=== PATIENT | female | born 1960 | race Caucasian/White ===

== ENCOUNTER 2019-11-28 13:15 | Emergency (ER) | payer OTHER ==
[~2019-11-28] VITALS: Ht 160 cm; Wt 85.7 kg
[~2019-11-28 13:15] MED LIST: CIPR500T87 PO; METR500T PO; OXYC-302 PO
[2019-11-28 13:32] VITALS: BP 115/70
[2019-11-28] MEDS ORDERED: ACETAMINOPHEN 500 MG TABLET ONE (14:05)
--- NOTE | 2019-11-28 14:22 | NUR ---
call light is within reach. pt placed on cardiac, o2 monitoring in place. pt is agreeable to plan of care, and educated in rtegard to nurse comminucation vs covid precautions. i will monitor and tyreat as ordered, as well as prn while awaiting further dispo.
[2019-11-28] MEDS ORDERED: ACETAMINOPHEN 500 MG TABLET PO ONE (14:30)
== END 2019-11-28 14:50 | disposition home or self-care (01) ==
LOC: ED 14:24
DX: B34.9 Viral infection, unspecified (principal); Z20.828 Contact with and (suspected) exposure to other viral communicable diseases; R50.9 Fever, unspecified; R11.10 Vomiting, unspecified
CPT/HCPCS: 71045; 99284

== ENCOUNTER 2019-12-02 23:01 | Inpatient (IN) | payer OTHER ==
[~2019-12-02] VITALS: Ht 160 cm; Wt 87.7 kg
[2019-12-02 23:47] LABS: MEAN CORPUSCULAR HEMOGLOBIN 26.2 pg (27.0-34.8); MEAN CORPUSCULAR HGB CONC 32.6 g/dL (32.4-35.8); MEAN CORPUSCULAR VOLUME 80.5 fL (80-100); MEAN PLATELET VOLUME 8.3 fL (7.4-10.4); PLATELET COUNT 468 x10^3/uL (130-400); RED BLOOD COUNT 3.84 x10^6/uL (3.82-5.3); RED CELL DISTRIBUTION WIDTH 16.9 % (9.6-15.2)
--- NOTE | 2019-12-02 23:47 | NUR ---
Patient presents to ER c/o lower quad abd pain x3 days which radiates to the back. Patient is nauseous and vomited yesterday. Denies diarrhea. Patient denies urinary symptoms. Patient is in NAD. Respirations even and unlabored.
[2019-12-02 23:48] LABS: CULTURE INDICATED? YES; MICROSCOPIC INDICATED
[2019-12-03] LABS: ALANINE AMINOTRANSFERASE 19 U/L (12-78); ALBUMIN 2.2 g/dL (3.4-5.0); ANION GAP 11 mmol/L (5-15); CALCIUM 8.8 mg/dL (8.5-10.1); CHLORIDE 101 mmol/L (98-107); CREATININE 0.73 mg/dL (0.55-1.02)
[2019-12-03 00:02] LABS: ALKALINE PHOSPHATASE 152 U/L (45-117); BILIRUBIN,TOTAL 0.5 mg/dL (0.2-1.0); TOTAL PROTEIN 7.6 g/dL (6.4-8.2)
[2019-12-03 00:23] LABS: MD YES
[2019-12-03 00:26] LABS: BAND#(MANUAL) 0.74 x10^3/uL; BANDS%(MANUAL) 12 % (0-7); BASOS#(MANUAL) 0.06 x10^3/uL (0-0.1); BASOS% (MANUAL) 1 % (0-1); EOS#(MANUAL) 0.06 x10^3/uL (0.0-0.4); EOS% (MANUAL) 1 % (1-7); LYMPHS% (MANUAL) 29 % (22-44); METAMYELOCYTES# (MANUAL) 0.12 x10^3/uL (0-0); METAMYELOCYTES% (MANUAL) 2 % (0-1); MONOS#(MANUAL) 1.12 x10^3/uL (0.3-2.7); MONOS% (MANUAL) 18 % (2-9); SEG#(MANUAL) 2.29 x10^3/uL (1.8-6.8); SEGS% (MANUAL) 37 % (42-75)
[2019-12-03 00:27] LABS: <PLATELET ESTIMATE> INCREASED; <PLT MORPHOLOGY> NORMAL PLT MORPH; ANISOCYTOSIS 1+; POLYCHROMASIA 1+
--- NOTE | 2019-12-03 00:32 | NUR ---
Patient to CT.
[2019-12-03] MEDS ORDERED: OMNIPAQUE 350 MG/ML, 100ML BOTTLE ONE (00:38)
--- NOTE | 2019-12-03 00:42 | NUR ---
Patient returned from CT. Awaiting results.
[2019-12-03] MEDS ORDERED: SODIUM CHLORIDE 0.9% 1,000ML IVBOLUS ONE (02:00)
[2019-12-03] MEDS ORDERED: HEPARIN 5,000 UNITS/ML, 1ML ONE (02:26)
[2019-12-03] MEDS ORDERED: HEPARIN 25,000 UNITS/250ML PMX 250 ML ONE (02:26)
[2019-12-03] MEDS ORDERED: VANCOMYCIN PER PHARMACY MC ONE (02:30)
[2019-12-03] MEDS ORDERED: HEPARIN 25,000 UNITS/250ML PMX 250 ML IV PRN (02:30)
[2019-12-03] MEDS ORDERED: CEFEPIME 1 GM in DEXTROSE 5% 50 ML IV ONE (02:30)
[2019-12-03] MEDS ORDERED: VANCOMYCIN 2,000 MG in SODIUM CHLORIDE 0.9% 500 ML IV ONE (02:30)
[2019-12-03] MEDS ORDERED: HEPARIN 5,000 UNITS/ML, 1ML IV ONE (02:30)
[2019-12-03 02:38] LABS: TROPONIN I < 0.015 ng/mL (0.000-0.045)
[2019-12-03 02:42] LABS: INTERNATIONAL NORMALIZED RATIO 1.22 (0.93-1.1)
[2019-12-03] MEDS ORDERED: OXYcodone IR 5MG TABLET PO PRN (03:00)
[2019-12-03] MEDS ORDERED: GUAIFENESIN/DM 200-20MG, 10ML UDC PO PRN (03:00)
[2019-12-03] MEDS ORDERED: ACETAMINOPHEN 325 MG TABLET PO PRN (03:00)
[2019-12-03] MEDS ORDERED: VANCOMYCIN PER PHARMACY MC PRN ×2 (03:00→04:00)
[2019-12-03] MEDS ORDERED: LABETALOL 5MG/ML, 20ML IVPush PRN (03:00)
[2019-12-03] MEDS ORDERED: ONDANSETRON 2MG/ML, 2ML IVPush PRN (03:00)
[2019-12-03] MEDS ORDERED: TRAZODONE 50MG TABLET PO PRN (03:00)
--- NOTE | 2019-12-03 03:01 | NUR ---
TP RN: DR. GARCIA'S ORDERS IN; NO COVID NEEDED.
--- NOTE | 2019-12-03 03:07 | NUR ---
Report given to RAGHAV Summers. Patient to be transferred to room 486. Sending up abx with patient to floor (Cefepime and Vanco).
[2019-12-03 03:10] LABS: HCT (SEDRATE) 30.9 % (34.6-47.8)
[2019-12-03 03:17] LABS: FREE T4 (FREE THYROXINE) 1.79 ng/dL (0.76-1.46)
[2019-12-03] MEDS ORDERED: HEPARIN 5,000 UNITS/ML, 1ML IV PRN (03:30)
[2019-12-03] MEDS: CEFEPIME 1 GM in DEXTROSE 5% 50 ML IV SCH ×3 (04:12→19:46)
[2019-12-03 04:21] VITALS: BP 130/81
[2019-12-03] MEDS ORDERED: PHARMACOKINETIC MONITORING MC PRN (04:30)
[2019-12-03] MEDS ORDERED: PHARMACOKINETIC CONSULTATION MC ONE (04:30)
[2019-12-03 07:00] VITALS: BP 124/71
[2019-12-03] MEDS: NS + 20MEQ KCL 1,000 ML IV SCH ×2 (08:31→22:16)
[2019-12-03] MEDS ORDERED: CEFEPIME 1 GM in DEXTROSE 5% 50 ML IV SCH (11:00)
[2019-12-03 12:25] VITALS: BP 121/76
[2019-12-03] MEDS ORDERED: ARGATROBAN 250 MG in SODIUM CHLORIDE 0.9% 247.5 ML IV PRN ×2 (17:30→21:09)
[2019-12-03 18:54] VITALS: BP_SYST 116; BP_SYST 136; BP_DIAS 74; BP_DIAS 87
[2019-12-03] MEDS ORDERED: VANCOMYCIN 1,500 MG in SODIUM CHLORIDE 0.9% 250 ML IV SCH (23:00)
[2019-12-04 01:02] VITALS: BP 112/68
[2019-12-04 02:33] LABS: ANION GAP 10 mmol/L (5-15); CALCIUM 8.1 mg/dL (8.5-10.1); CHLORIDE 107 mmol/L (98-107); CREATININE 0.49 mg/dL (0.55-1.02); MEAN CORPUSCULAR HEMOGLOBIN 26.2 pg (27.0-34.8); MEAN CORPUSCULAR HGB CONC 32.5 g/dL (32.4-35.8); MEAN CORPUSCULAR VOLUME 80.8 fL (80-100); MEAN PLATELET VOLUME 8.5 fL (7.4-10.4); PLATELET COUNT 376 x10^3/uL (130-400); RED BLOOD COUNT 3.29 x10^6/uL (3.82-5.3); RED CELL DISTRIBUTION WIDTH 17.5 % (9.6-15.2)
[2019-12-04 03:23] LABS: MD YES
[2019-12-04 03:24] LABS: BANDS%(MANUAL) 3 % (0-7); BASOS#(MANUAL) 0.07 x10^3/uL (0-0.1); BASOS% (MANUAL) 1 % (0-1); EOS#(MANUAL) 0.07 x10^3/uL (0.0-0.4); EOS% (MANUAL) 1 % (1-7); LYMPH#(MANUAL) 2.58 x10^3/uL (1-3.4); LYMPHS% (MANUAL) 38 % (22-44); METAMYELOCYTES# (MANUAL) 0.14 x10^3/uL (0-0); METAMYELOCYTES% (MANUAL) 2 % (0-1); MONOS#(MANUAL) 1.29 x10^3/uL (0.3-2.7); MONOS% (MANUAL) 19 % (2-9); MYELOCYTES% (MANUAL) 3 % (0-0); REACTIVE LYMPHS # (MANUAL) 0.14 x10^3/uL (0-0); REACTIVE LYMPHS % (MANUAL) 2 % (0-0); SEG#(MANUAL) 2.11 x10^3/uL (1.8-6.8); SEGS% (MANUAL) 31 % (42-75); SMUDGE CELLS 1+; TOXIC GRAN 1+
[2019-12-04 03:26] LABS: ANISOCYTOSIS 1+; POLYCHROMASIA 1+
[2019-12-04 03:27] LABS: <PLATELET ESTIMATE> ADEQUATE; <PLT MORPHOLOGY> NORMAL PLT MORPH
[2019-12-04] MEDS: CEFEPIME 1 GM in DEXTROSE 5% 50 ML IV SCH ×3 (03:31→19:41)
[2019-12-04] MEDS: morphine SULFATE 10 MG/ML, 1ML IVPush PRN ×4 (03:39→23:33)
[2019-12-04 06:17] VITALS: BP 115/78
[2019-12-04] MEDS: METRONIDAZOLE PMX 500MG/100ML 100 ML IV SCH ×2 (09:35→17:35)
[2019-12-04 12:09] VITALS: BP 128/80
[2019-12-04] MEDS: NS + 20MEQ KCL 1,000 ML IV SCH (14:13)
[2019-12-04 18:41] VITALS: BP 124/73
[2019-12-05 01:05] VITALS: BP 137/79
[2019-12-05] MEDS: METRONIDAZOLE PMX 500MG/100ML 100 ML IV SCH ×3 (01:06→22:43)
[2019-12-05] MEDS: CEFEPIME 1 GM in DEXTROSE 5% 50 ML IV SCH ×3 (03:29→23:53)
[2019-12-05] MEDS: NS + 20MEQ KCL 1,000 ML IV SCH (06:18)
[2019-12-05] MEDS ORDERED: D5%-0.45% NACL 1,000 ML IV SCH (07:00)
[2019-12-05 07:24] VITALS: BP 144/78
[2019-12-05] MEDS: morphine SULFATE 10 MG/ML, 1ML IVPush PRN (08:11)
[2019-12-05 08:40] LABS: MEAN CORPUSCULAR HEMOGLOBIN 25.7 pg (27.0-34.8); MEAN CORPUSCULAR HGB CONC 31.6 g/dL (32.4-35.8); MEAN CORPUSCULAR VOLUME 81.4 fL (80-100); PLATELET COUNT 403 x10^3/uL (130-400); RED BLOOD COUNT 3.46 x10^6/uL (3.82-5.3); RED CELL DISTRIBUTION WIDTH 17.2 % (9.6-15.2)
[2019-12-05 08:48] LABS: ANION GAP 9 mmol/L (5-15); CALCIUM 8.3 mg/dL (8.5-10.1); CHLORIDE 104 mmol/L (98-107); CREATININE 0.49 mg/dL (0.55-1.02)
[2019-12-05 09:02] LABS: MD YES
[2019-12-05 09:09] LABS: BAND#(MANUAL) 1.21 x10^3/uL; BANDS%(MANUAL) 9 % (0-7); EOS#(MANUAL) 0.13 x10^3/uL (0.0-0.4); EOS% (MANUAL) 1 % (1-7); LYMPH#(MANUAL) 1.47 x10^3/uL (1-3.4); LYMPHS% (MANUAL) 11 % (22-44); METAMYELOCYTES# (MANUAL) 0.13 x10^3/uL (0-0); METAMYELOCYTES% (MANUAL) 1 % (0-1); MONOS#(MANUAL) 0.67 x10^3/uL (0.3-2.7); MONOS% (MANUAL) 5 % (2-9); SEG#(MANUAL) 9.78 x10^3/uL (1.8-6.8); SEGS% (MANUAL) 73 % (42-75)
[2019-12-05 09:10] LABS: PMNS WITH VACUOLES 1+
[2019-12-05 09:11] LABS: POLYCHROMASIA 1+
[2019-12-05 09:15] LABS: <PLATELET ESTIMATE> ADEQUATE
[2019-12-05 09:17] LABS: ANISOCYTOSIS 1+
[2019-12-05 09:18] LABS: <PLT MORPHOLOGY> NORMAL PLT MORPH
[2019-12-05] MEDS ORDERED: VANCOMYCIN 2,000 MG in SODIUM CHLORIDE 0.9% 500 ML IV ONE (11:00)
[2019-12-05] MEDS ORDERED: PHARMACOKINETIC CONSULTATION MC ONE (11:00)
[2019-12-05] MEDS ORDERED: PHARMACOKINETIC MONITORING MC PRN (11:00)
[2019-12-05] MEDS ORDERED: VANCOMYCIN PER PHARMACY MC SCH (11:00)
[2019-12-05] MEDS ORDERED: BUPIVACAINE/PF-EPI 0.5% 1:200K ONE (13:21)
[2019-12-05] MEDS ORDERED: ISOSULFAN BLUE 10 MG/ML, 5ML IV ONE (13:21)
[2019-12-05] MEDS ORDERED: FENTANYL PF 250 MCG/5ML ONE (16:08)
[2019-12-05] MEDS ORDERED: LIDOCAINE GEL 2%, 5ML ONE (17:10)
[2019-12-05] MEDS ORDERED: BUPIVACAINE/PF-EPI 0.5% 1:200K INFIL ONE (18:13)
[2019-12-05] MEDS ORDERED: FENTANYL PF 100 MCG/2ML IV PRN (19:00)
[2019-12-05] MEDS ORDERED: LORazepam 2 MG/ML, 1ML IVPush PRN (19:00)
[2019-12-05] MEDS ORDERED: LABETALOL 5MG/ML, 20ML IV PRN (19:00)
[2019-12-05] MEDS ORDERED: MIDAZOLAM 1 MG/ML, 2ML IV PRN (19:00)
[2019-12-05] MEDS ORDERED: MEPERIDINE/PF 25MG/ML,1ML IVPush PRN (19:00)
[2019-12-05] MEDS ORDERED: hydrALAzine 20 MG/ML, 1ML IV PRN (19:00)
[2019-12-05] MEDS ORDERED: HYDROmorphone 2 MG/ML, 1ML IVPush PRN (19:00)
[2019-12-05] MEDS ORDERED: PROMETHAZINE 25 MG/ML, 1ML IV PRN (19:00)
[2019-12-05] MEDS ORDERED: GLYCOPYRROLATE 0.2MG/1ML, 5ML ONE (19:03)
[2019-12-05] MEDS ORDERED: SUGAMMADEX 200 MG/2 ML IVPush ONE (19:03)
[2019-12-05] MEDS ORDERED: NEOSTIGMINE 1 MG/ML, 10ML ONE (19:03)
[2019-12-05] MEDS ORDERED: ROCURONIUM 10MG/ML,5ML ONE (19:03)
[2019-12-05] MEDS ORDERED: ONDANSETRON 2MG/ML, 2ML ONE (19:03)
[2019-12-05] MEDS ORDERED: PROPOFOL 10 MG/ML, 20ML ONE (19:03)
[2019-12-05] MEDS ORDERED: DEXAMETHASONE 4 MG/ML, 1ML ONE (19:03)
[2019-12-05] MEDS ORDERED: SUCCINYLCHOLINE 20 MG/ML, 10ML ONE (19:03)
[2019-12-05 20:23] VITALS: BP 121/74
[2019-12-06] VITALS: BP 118/75
[2019-12-06] MEDS ORDERED: VANCOMYCIN 1,600 MG in SODIUM CHLORIDE 0.9% 250 ML IV SCH (05:00)
[2019-12-06] MEDS: METRONIDAZOLE PMX 500MG/100ML 100 ML IV SCH ×3 (06:23→22:59)
[2019-12-06 07:23] LABS: MEAN CORPUSCULAR HEMOGLOBIN 25.5 pg (27.0-34.8); MEAN CORPUSCULAR HGB CONC 31.5 g/dL (32.4-35.8); MEAN CORPUSCULAR VOLUME 80.9 fL (80-100); MEAN PLATELET VOLUME 8.3 fL (7.4-10.4); PLATELET COUNT 416 x10^3/uL (130-400); RED BLOOD COUNT 3.16 x10^6/uL (3.82-5.3); RED CELL DISTRIBUTION WIDTH 17.4 % (9.6-15.2)
[2019-12-06 07:25] LABS: ANION GAP 6 mmol/L (5-15); CALCIUM 7.5 mg/dL (8.5-10.1); CHLORIDE 106 mmol/L (98-107); CREATININE 0.48 mg/dL (0.55-1.02)
[2019-12-06 07:54] VITALS: BP 130/82
[2019-12-06 08:02] LABS: MD YES
[2019-12-06 08:04] LABS: <PLATELET ESTIMATE> INCREASED; <PLT MORPHOLOGY> NORMAL PLT MORPH; ANISOCYTOSIS 1+; LYMPHS% (MANUAL) 11 % (22-44); METAMYELOCYTES# (MANUAL) 0.52 x10^3/uL (0-0); METAMYELOCYTES% (MANUAL) 3 % (0-1); MONOS#(MANUAL) 1.04 x10^3/uL (0.3-2.7); MONOS% (MANUAL) 6 % (2-9); MYELOCYTES# (MANUAL) 0.52 x10^3/uL (0-0); MYELOCYTES% (MANUAL) 3 % (0-0); PMNS WITH VACUOLES 1+; POLYCHROMASIA 1+; SEG#(MANUAL) 13.32 x10^3/uL (1.8-6.8); SEGS% (MANUAL) 77 % (42-75)
[2019-12-06 08:05] LABS: TOXIC GRAN 1+
[2019-12-06] MEDS: CEFEPIME 1 GM in DEXTROSE 5% 50 ML IV SCH ×2 (08:54→17:25)
[2019-12-06] MEDS: DOCUSATE 100 MG CAPSULE PO PRN (09:05)
[2019-12-06] MEDS: VANCOMYCIN 1,600 MG in SODIUM CHLORIDE 0.9% 250 ML IV SCH (11:10)
[2019-12-06] MEDS ORDERED: ARGATROBAN 250 MG in SODIUM CHLORIDE 0.9% 247.5 ML IV PRN (12:00)
[2019-12-06 12:37] VITALS: BP 108/69
[2019-12-06] MEDS ORDERED: APIXABAN 5 MG TABLET ONE (13:14)
[2019-12-06 19:00] VITALS: BP 112/72
[2019-12-06] MEDS: APIXABAN 5 MG TABLET PO SCH (21:10)
[2019-12-07] MEDS: VANCOMYCIN 1,600 MG in SODIUM CHLORIDE 0.9% 250 ML IV SCH ×2 (00:20→18:22)
[2019-12-07 00:40] VITALS: BP 138/82
[2019-12-07] MEDS: CEFEPIME 1 GM in DEXTROSE 5% 50 ML IV SCH ×3 (02:27→17:29)
[2019-12-07 05:00] LABS: MEAN CORPUSCULAR HEMOGLOBIN 26.3 pg (27.0-34.8); MEAN CORPUSCULAR HGB CONC 32.4 g/dL (32.4-35.8); MEAN CORPUSCULAR VOLUME 81.1 fL (80-100); MEAN PLATELET VOLUME 8.2 fL (7.4-10.4); PLATELET COUNT 468 x10^3/uL (130-400); RED BLOOD COUNT 3.28 x10^6/uL (3.82-5.3); RED CELL DISTRIBUTION WIDTH 16.9 % (9.6-15.2)
[2019-12-07 05:24] LABS: MD YES
[2019-12-07 05:27] LABS: <PLATELET ESTIMATE> INCREASED; <PLT MORPHOLOGY> NORMAL PLT MORPH; ANISOCYTOSIS 1+; BAND#(MANUAL) 0.66 x10^3/uL; BANDS%(MANUAL) 5 % (0-7); EOS#(MANUAL) 0.26 x10^3/uL (0.0-0.4); EOS% (MANUAL) 2 % (1-7); LYMPH#(MANUAL) 1.45 x10^3/uL (1-3.4); LYMPHS% (MANUAL) 11 % (22-44); METAMYELOCYTES# (MANUAL) 0.26 x10^3/uL (0-0); METAMYELOCYTES% (MANUAL) 2 % (0-1); MONOS% (MANUAL) 3 % (2-9); MYELOCYTES# (MANUAL) 0.26 x10^3/uL (0-0); MYELOCYTES% (MANUAL) 2 % (0-0); PMNS WITH VACUOLES 1+; POLYCHROMASIA 1+; SEGS% (MANUAL) 75 % (42-75)
[2019-12-07 07:50] LABS: ANION GAP 6 mmol/L (5-15); CHLORIDE 105 mmol/L (98-107); CREATININE 0.53 mg/dL (0.55-1.02)
[2019-12-07 07:58] VITALS: BP 129/80
[2019-12-07] MEDS: MULTIVITS,STRESS FORMULA 1 TABLET PO SCH (08:01)
[2019-12-07] MEDS: APIXABAN 5 MG TABLET PO SCH ×2 (08:01→20:37)
[2019-12-07] MEDS: METRONIDAZOLE PMX 500MG/100ML 100 ML IV SCH ×3 (08:01→23:19)
[2019-12-07] MEDS: CHOLECALCIFEROL 400 UNITS TABLET PO SCH (08:02)
[2019-12-07] MEDS: DOCUSATE 100 MG CAPSULE PO PRN (08:02)
[2019-12-07] MEDS: ASCORBIC ACID 500 MG TABLET PO SCH ×2 (08:06→17:29)
[2019-12-07] MEDS ORDERED: SENNA/DOCUSATE TABLET ONE (10:46)
[2019-12-07] MEDS ORDERED: BISACODYL 10 MG SUPP ONE (10:46)
[2019-12-07] MEDS ORDERED: MAGNESIUM HYDROXIDE 8%, 30ML UDC PO PRN (11:00)
[2019-12-07] MEDS ORDERED: BISACODYL 5 MG EC TABLET PO PRN (11:00)
[2019-12-07] MEDS ORDERED: SENNA/DOCUSATE TABLET PO PRN (11:00)
[2019-12-07 14:50] VITALS: BP 126/74
[2019-12-07 19:40] VITALS: BP 106/70
[2019-12-08 02:10] VITALS: BP 108/71
[2019-12-08] MEDS: CEFEPIME 1 GM in DEXTROSE 5% 50 ML IV SCH ×2 (02:19→09:59)
[2019-12-08 06:14] VITALS: BP 118/75
[2019-12-08 06:26] LABS: MEAN CORPUSCULAR HEMOGLOBIN 26.1 pg (27.0-34.8); MEAN CORPUSCULAR HGB CONC 31.9 g/dL (32.4-35.8); MEAN PLATELET VOLUME 7.6 fL (7.4-10.4); PLATELET COUNT 492 x10^3/uL (130-400); RED CELL DISTRIBUTION WIDTH 17.7 % (9.6-15.2)
[2019-12-08 06:29] LABS: OCCULT BLOOD POSITIVE (NEGATIVE)
[2019-12-08] MEDS: METRONIDAZOLE PMX 500MG/100ML 100 ML IV SCH ×2 (06:31→15:40)
[2019-12-08 06:38] LABS: ALBUMIN 1.6 g/dL (3.4-5.0); ANION GAP 6 mmol/L (5-15); CALCIUM 7.8 mg/dL (8.5-10.1); CHLORIDE 106 mmol/L (98-107); CREATININE 0.49 mg/dL (0.55-1.02)
[2019-12-08] MEDS: CHOLECALCIFEROL 400 UNITS TABLET PO SCH (08:03)
[2019-12-08] MEDS: ASCORBIC ACID 500 MG TABLET PO SCH ×2 (08:04→17:11)
[2019-12-08] MEDS: MULTIVITS,STRESS FORMULA 1 TABLET PO SCH (08:04)
[2019-12-08] MEDS: APIXABAN 5 MG TABLET PO SCH ×2 (08:04→20:24)
[2019-12-08 08:21] LABS: MD YES
[2019-12-08 08:22] LABS: BAND#(MANUAL) 1.39 x10^3/uL; BANDS%(MANUAL) 11 % (0-7); EOS#(MANUAL) 0.76 x10^3/uL (0.0-0.4); EOS% (MANUAL) 6 % (1-7); LYMPH#(MANUAL) 1.89 x10^3/uL (1-3.4); LYMPHS% (MANUAL) 15 % (22-44); METAMYELOCYTES% (MANUAL) 4 % (0-1); MONOS#(MANUAL) 0.38 x10^3/uL (0.3-2.7); MONOS% (MANUAL) 3 % (2-9); MYELOCYTES% (MANUAL) 4 % (0-0); SEG#(MANUAL) 7.18 x10^3/uL (1.8-6.8); SEGS% (MANUAL) 57 % (42-75)
[2019-12-08 08:23] LABS: ANISOCYTOSIS 1+; POLYCHROMASIA 1+
[2019-12-08 08:24] LABS: <PLATELET ESTIMATE> INCREASED; <PLT MORPHOLOGY> NORMAL PLT MORPH
[2019-12-08] MEDS: VANCOMYCIN 1,600 MG in SODIUM CHLORIDE 0.9% 250 ML IV SCH (12:02)
[2019-12-08 12:05] VITALS: BP 113/72
[2019-12-08] MEDS ORDERED: PIPERACILLIN/TAZO/PMX 3.375GM 50 ML IV SCH (15:00)
[2019-12-08] MEDS ORDERED: CEFEPIME 2 GM in DEXTROSE 5% 100 ML IV SCH (16:00)
[2019-12-08] MEDS: CEFEPIME 2 GM in DEXTROSE 5% 100 ML IV SCH (18:06)
[2019-12-08 19:09] VITALS: BP 99/67
[2019-12-08] MEDS ORDERED: SULFAMETH./TRIMETHOPRIM DS 800MG/160MG TABLET PO SCH (21:00)
[2019-12-09] MEDS: METRONIDAZOLE PMX 500MG/100ML 100 ML IV SCH ×3 (00:02→17:46)
[2019-12-09 01:04] VITALS: BP 132/78
[2019-12-09] MEDS: CEFEPIME 2 GM in DEXTROSE 5% 100 ML IV SCH ×3 (02:05→22:06)
[2019-12-09 05:47] LABS: ANION GAP 5 mmol/L (5-15); CALCIUM 7.9 mg/dL (8.5-10.1); CHLORIDE 107 mmol/L (98-107); CREATININE 0.47 mg/dL (0.55-1.02)
[2019-12-09 05:50] LABS: MEAN CORPUSCULAR HEMOGLOBIN 26.3 pg (27.0-34.8); MEAN CORPUSCULAR HGB CONC 32.1 g/dL (32.4-35.8); MEAN PLATELET VOLUME 7.9 fL (7.4-10.4); PLATELET COUNT 423 x10^3/uL (130-400); RED BLOOD COUNT 3.18 x10^6/uL (3.82-5.3); RED CELL DISTRIBUTION WIDTH 17.2 % (9.6-15.2)
[2019-12-09 06:20] LABS: MD YES
[2019-12-09 06:22] LABS: ANISOCYTOSIS 1+; BAND#(MANUAL) 0.23 x10^3/uL; BANDS%(MANUAL) 2 % (0-7); EOS#(MANUAL) 0.23 x10^3/uL (0.0-0.4); EOS% (MANUAL) 2 % (1-7); HYPOCHROMIA 1+; LYMPH#(MANUAL) 1.58 x10^3/uL (1-3.4); LYMPHS% (MANUAL) 14 % (22-44); METAMYELOCYTES# (MANUAL) 0.45 x10^3/uL (0-0); METAMYELOCYTES% (MANUAL) 4 % (0-1); MONOS#(MANUAL) 0.45 x10^3/uL (0.3-2.7); MONOS% (MANUAL) 4 % (2-9); MYELOCYTES# (MANUAL) 0.11 x10^3/uL (0-0); MYELOCYTES% (MANUAL) 1 % (0-0); POLYCHROMASIA 1+; SEG#(MANUAL) 8.25 x10^3/uL (1.8-6.8); SEGS% (MANUAL) 73 % (42-75)
[2019-12-09 06:23] LABS: <PLATELET ESTIMATE> INCREASED; <PLT MORPHOLOGY> NORMAL PLT MORPH
[2019-12-09 06:52] VITALS: BP 116/74
[2019-12-09] MEDS: CHOLECALCIFEROL 400 UNITS TABLET PO SCH (08:18)
[2019-12-09] MEDS: ASCORBIC ACID 500 MG TABLET PO SCH ×2 (08:18→16:21)
[2019-12-09] MEDS: MULTIVITS,STRESS FORMULA 1 TABLET PO SCH (08:18)
[2019-12-09] MEDS: APIXABAN 5 MG TABLET PO SCH ×2 (08:19→22:06)
[2019-12-09 12:58] VITALS: BP 110/72
[2019-12-09 19:16] VITALS: BP 123/71
[2019-12-10 02:21] VITALS: BP 125/76
[2019-12-10] MEDS: METRONIDAZOLE PMX 500MG/100ML 100 ML IV SCH ×2 (02:22→10:33)
[2019-12-10 05:22] LABS: MEAN CORPUSCULAR HEMOGLOBIN 26.3 pg (27.0-34.8); MEAN CORPUSCULAR HGB CONC 32.1 g/dL (32.4-35.8); MEAN CORPUSCULAR VOLUME 82.1 fL (80-100); MEAN PLATELET VOLUME 7.9 fL (7.4-10.4); PLATELET COUNT 413 x10^3/uL (130-400); RED BLOOD COUNT 3.29 x10^6/uL (3.82-5.3); RED CELL DISTRIBUTION WIDTH 17.3 % (9.6-15.2)
[2019-12-10 05:29] LABS: ANION GAP 5 mmol/L (5-15); CALCIUM 8.2 mg/dL (8.5-10.1); CHLORIDE 105 mmol/L (98-107); CREATININE 0.45 mg/dL (0.55-1.02)
[2019-12-10 06:00] LABS: MD YES
[2019-12-10 06:01] LABS: ANISOCYTOSIS 1+; BAND#(MANUAL) 0.33 x10^3/uL; BANDS%(MANUAL) 3 % (0-7); EOS#(MANUAL) 0.11 x10^3/uL (0.0-0.4); EOS% (MANUAL) 1 % (1-7); HYPOCHROMIA 1+; LYMPH#(MANUAL) 1.43 x10^3/uL (1-3.4); LYMPHS% (MANUAL) 13 % (22-44); METAMYELOCYTES# (MANUAL) 0.22 x10^3/uL (0-0); METAMYELOCYTES% (MANUAL) 2 % (0-1); MONOS#(MANUAL) 0.44 x10^3/uL (0.3-2.7); MONOS% (MANUAL) 4 % (2-9); MYELOCYTES# (MANUAL) 0.11 x10^3/uL (0-0); MYELOCYTES% (MANUAL) 1 % (0-0); SEG#(MANUAL) 8.36 x10^3/uL (1.8-6.8); SEGS% (MANUAL) 76 % (42-75)
[2019-12-10 06:02] LABS: <PLATELET ESTIMATE> INCREASED; <PLT MORPHOLOGY> NORMAL PLT MORPH; POLYCHROMASIA 1+
[2019-12-10 06:12] VITALS: BP 115/74
[2019-12-10] MEDS: CEFEPIME 2 GM in DEXTROSE 5% 100 ML IV SCH (06:13)
[2019-12-10] MEDS: APIXABAN 5 MG TABLET PO SCH ×2 (08:04→21:02)
[2019-12-10] MEDS: CHOLECALCIFEROL 400 UNITS TABLET PO SCH (08:04)
[2019-12-10] MEDS: ASCORBIC ACID 500 MG TABLET PO SCH ×2 (08:04→16:31)
[2019-12-10] MEDS: MULTIVITS,STRESS FORMULA 1 TABLET PO SCH (08:04)
[2019-12-10 13:12] VITALS: BP 111/74
[2019-12-10] MEDS: ERTAPENEM 1 GM in SODIUM CHLORIDE 0.9% 50 ML IV SCH (13:33)
[2019-12-10 18:34] VITALS: BP 127/85
[2019-12-11 00:52] VITALS: BP 119/81
[2019-12-11 06:12] LABS: CALCIUM 8.3 mg/dL (8.5-10.1); CHLORIDE 104 mmol/L (98-107)
[2019-12-11 06:15] LABS: ANION GAP 4 mmol/L (5-15); CREATININE 0.48 mg/dL (0.55-1.02)
[2019-12-11 06:21] LABS: MEAN CORPUSCULAR HEMOGLOBIN 26.1 pg (27.0-34.8); MEAN CORPUSCULAR HGB CONC 31.5 g/dL (32.4-35.8); MEAN CORPUSCULAR VOLUME 82.9 fL (80-100); MEAN PLATELET VOLUME 7.5 fL (7.4-10.4); PLATELET COUNT 373 x10^3/uL (130-400); RED BLOOD COUNT 3.51 x10^6/uL (3.82-5.3); RED CELL DISTRIBUTION WIDTH 17.9 % (9.6-15.2)
[2019-12-11 07:13] LABS: MD YES
[2019-12-11 07:14] LABS: BAND#(MANUAL) 0.12 x10^3/uL; BANDS%(MANUAL) 1 % (0-7); LYMPH#(MANUAL) 2.22 x10^3/uL (1-3.4); LYMPHS% (MANUAL) 19 % (22-44); METAMYELOCYTES# (MANUAL) 0.12 x10^3/uL (0-0); METAMYELOCYTES% (MANUAL) 1 % (0-1); MONOS#(MANUAL) 0.82 x10^3/uL (0.3-2.7); MONOS% (MANUAL) 7 % (2-9); MYELOCYTES# (MANUAL) 0.12 x10^3/uL (0-0); MYELOCYTES% (MANUAL) 1 % (0-0); SEG#(MANUAL) 8.31 x10^3/uL (1.8-6.8); SEGS% (MANUAL) 71 % (42-75)
[2019-12-11 07:15] LABS: <PLATELET ESTIMATE> ADEQUATE; <PLT MORPHOLOGY> NORMAL PLT MORPH; ANISOCYTOSIS 1+; HYPOCHROMIA 1+; POLYCHROMASIA 1+
[2019-12-11 07:45] VITALS: BP 124/70
[2019-12-11] MEDS: MULTIVITS,STRESS FORMULA 1 TABLET PO SCH (08:19)
[2019-12-11] MEDS: ASCORBIC ACID 500 MG TABLET PO SCH ×2 (08:19→17:35)
[2019-12-11] MEDS: CHOLECALCIFEROL 400 UNITS TABLET PO SCH (08:19)
[2019-12-11] MEDS: APIXABAN 5 MG TABLET PO SCH ×2 (08:19→20:39)
[2019-12-11] MEDS: ERTAPENEM 1 GM in SODIUM CHLORIDE 0.9% 50 ML IV SCH (12:10)
[2019-12-11 15:59] VITALS: BP 113/72
[2019-12-11 19:39] VITALS: BP 120/77
[2019-12-12 01:42] VITALS: BP 122/75
[2019-12-12 06:48] VITALS: BP 119/76
[2019-12-12] MEDS: MULTIVITS,STRESS FORMULA 1 TABLET PO SCH (08:44)
[2019-12-12] MEDS: APIXABAN 5 MG TABLET PO SCH ×2 (08:44→19:58)
[2019-12-12] MEDS: ASCORBIC ACID 500 MG TABLET PO SCH ×2 (08:45→16:20)
[2019-12-12] MEDS: CHOLECALCIFEROL 400 UNITS TABLET PO SCH (08:45)
[2019-12-12] MEDS: ERTAPENEM 1 GM in SODIUM CHLORIDE 0.9% 50 ML IV SCH (11:33)
[2019-12-12 13:46] VITALS: BP 110/70
[2019-12-12 19:17] VITALS: BP 105/68
[2019-12-13 01:49] VITALS: BP 110/73
[2019-12-13 07:12] VITALS: BP 119/79
[2019-12-13] MEDS: APIXABAN 5 MG TABLET PO SCH (07:43)
[2019-12-13] MEDS: ASCORBIC ACID 500 MG TABLET PO SCH (07:44)
[2019-12-13] MEDS: MULTIVITS,STRESS FORMULA 1 TABLET PO SCH (07:44)
[2019-12-13] MEDS: CHOLECALCIFEROL 400 UNITS TABLET PO SCH (07:44)
[2019-12-13] MEDS: ERTAPENEM 1 GM in SODIUM CHLORIDE 0.9% 50 ML IV SCH (12:05)
[2019-12-13 12:11] VITALS: BP 102/66
[2019-12-13] MEDS ORDERED: APIX5TAB PO (13:06)
[2019-12-13] MEDS ORDERED: APIXABAN 5 MG TABLET PO SCH (21:00)
== END 2019-12-13 15:30 | disposition home or self-care (01) | DRG 853 ==
LOC: ED 23:13 → SUATTDRO 12-03 02:14 → EDIP 12-03 02:34 → 4EST 12-03 03:21
PROVIDERS: ADMIT Hospitalist; ATTEND Internal Medicine Infectious Disease
PROC: 0D964ZZ Drainage of Stomach, Percutaneous Endoscopic Approach (ICD-10-PCS; 2019-12-05)
PROC: 0DJ08ZZ Inspection of Upper Intestinal Tract, Via Natural or Artificial Opening Endoscopic (ICD-10-PCS; 2019-12-05)
PROC: 02HV33Z Insertion of Infusion Device into Superior Vena Cava, Percutaneous Approach (ICD-10-PCS; principal; 2019-12-10)
PROC: B5181ZA Fluoroscopy of Superior Vena Cava using Low Osmolar Contrast, Guidance (ICD-10-PCS; 2019-12-10)
PROC: B548ZZA Ultrasonography of Superior Vena Cava, Guidance (ICD-10-PCS; 2019-12-10)
DX: A41.9 Sepsis, unspecified organism (principal); K85.90 Acute pancreatitis without necrosis or infection, unspecified; I26.99 Other pulmonary embolism without acute cor pulmonale; K86.3 Pseudocyst of pancreas; E87.1 Hypo-osmolality and hyponatremia; D64.9 Anemia, unspecified; N13.5 Crossing vessel and stricture of ureter without hydronephrosis; Z88.0 Allergy status to penicillin; Z90.49 Acquired absence of other specified parts of digestive tract; Z82.49 Family history of ischemic heart disease and other diseases of the circulatory system
CPT/HCPCS: 36415; 36573; 74177; 80048; 80053; 80069; 80202; 81001; 82272; 82728; 83540; 83550; 83690; 83735; 83880; 84100; 84439; 84443; 84484; 85025; 85520; 85610; 85651; 85730; 87015; 87070; 87075; 87077; 87086; 87116; 87186; 87205; 87206; 93005; 93306; 93356; 93970; 96374; G0378; J0692; J0883; J1100; J1335; J1644; J2405; J2704; J2710; J3010; J3370; J3480; Q9967; C1751; J0330; J2270; J7030; J7040; J7050

== ENCOUNTER 2019-12-27 09:15 | Outpatient (CLI) | payer OTHER ==
[~2019-12-27 09:15] MED LIST changes: +APIX5TAB PO
[2019-12-27] MEDS ORDERED: OMNIPAQUE 350 MG/ML, 100ML BOTTLE ONE (10:09)
== END 2019-12-27 23:59 | disposition home or self-care (01) ==
LOC: RAD 09:15
PROVIDERS: ATTEND Internal Medicine Infectious Disease
DX: B96.0 Mycoplasma pneumoniae [M. pneumoniae] as the cause of diseases classified elsewhere (principal); K76.0 Fatty (change of) liver, not elsewhere classified; N15.1 Renal and perinephric abscess; N13.39 Other hydronephrosis; R59.0 Localized enlarged lymph nodes
CPT/HCPCS: 74177; Q9967

== ENCOUNTER 2020-01-06 06:06 | Day surgery (SDC) | payer OTHER ==
[~2020-01-06] VITALS: Ht 160 cm; Wt 83.0 kg
[2020-01-06 07:36] VITALS: BP 113/76
[2020-01-06] MEDS ORDERED: APIX5TAB PO (07:38)
[2020-01-06] MEDS ORDERED: ANTIBIOTICS IV (07:38)
[2020-01-06] MEDS ORDERED: NALOXONE 1 MG/ML, 2ML ONE (08:38)
[2020-01-06] MEDS ORDERED: MIDAZOLAM 1 MG/ML, 5ML ONE (08:38)
[2020-01-06] MEDS ORDERED: FENTANYL PF 100 MCG/2ML ONE (08:38)
[2020-01-06] MEDS ORDERED: FLUMAZENIL 0.1 MG/1 ML, 5ML ONE (08:38)
== END 2020-01-06 09:30 | disposition home or self-care (01) ==
LOC: OUT 06:06 → EDSTATUS 08:00 → OUT 09:30
PROVIDERS: ATTEND Internal Medicine Infectious Disease
DX: K86.3 Pseudocyst of pancreas (principal)
CPT/HCPCS: 75989; J2250; J3010; J2310

== ENCOUNTER 2020-01-31 07:12 | Day surgery (SDC) | payer OTHER ==
[~2020-01-31] VITALS: Ht 160 cm; Wt 83.7 kg
[~2020-01-31 07:12] MED LIST changes: +ANTIBIOTICS IV; +FENTANYL PF 250 MCG/5ML ONE; +MIDAZOLAM 1 MG/ML, 2ML ONE
[2020-01-31] MEDS ORDERED: LACTATED RINGERS 1,000 ML IV SCH (07:17)
[2020-01-31] MEDS ORDERED: CHLORHEXIDINE 15 ML UDC ONE (07:17)
[2020-01-31 07:27] VITALS: BP 124/82
[2020-01-31] MEDS ORDERED: PLEASE ENTER HEIGHT AND WEIGHT MC SCH (07:30)
[2020-01-31] MEDS ORDERED: CHLORHEXIDINE 15 ML UDC MM ONE (07:30)
[2020-01-31] MEDS ORDERED: PROPOFOL 10 MG/ML, 20ML ONE (07:39)
[2020-01-31] MEDS ORDERED: DEXAMETHASONE 4 MG/ML, 1ML ONE (07:39)
[2020-01-31] MEDS ORDERED: SUCCINYLCHOLINE 20 MG/ML, 10ML ONE (07:39)
[2020-01-31] MEDS ORDERED: ONDANSETRON 2MG/ML, 2ML ONE (07:39)
[2020-01-31] MEDS ORDERED: FENTANYL PF 100 MCG/2ML IV PRN (08:00)
[2020-01-31] MEDS ORDERED: HYDROmorphone 1 MG/ML, 1ML INJ IVPush PRN (08:00)
[2020-01-31] MEDS ORDERED: OMNIPAQUE 350 MG/ML, 50 ML BOTTLE ONE (08:00)
[2020-01-31] MEDS ORDERED: MEPERIDINE/PF 25MG/0.5ML IVPush PRN (08:00)
[2020-01-31] MEDS ORDERED: PROMETHAZINE 25 MG/ML, 1ML IVPush PRN (08:00)
[2020-01-31] MEDS ORDERED: ONDANSETRON 2MG/ML, 2ML IVPush PRN (08:00)
[2020-01-31] MEDS ORDERED: OXYcodone 5 MG/5 ML ORAL.SOL UDC PO PRN (08:00)
[2020-01-31] MEDS ORDERED: ROCURONIUM 10MG/ML,5ML ONE (08:30)
== END 2020-01-31 10:45 | disposition home or self-care (01) ==
LOC: OUT 07:12
PROVIDERS: ATTEND Internal Medicine Gastroenterology
DX: Z46.59 Encounter for fitting and adjustment of other gastrointestinal appliance and device (principal); Z11.59 Encounter for screening for other viral diseases; K85.10 Biliary acute pancreatitis without necrosis or infection; K86.3 Pseudocyst of pancreas; K80.51 Calculus of bile duct without cholangitis or cholecystitis with obstruction; Z79.01 Long term (current) use of anticoagulants; Z79.899 Other long term (current) drug therapy; Z86.718 Personal history of other venous thrombosis and embolism; Z86.711 Personal history of pulmonary embolism; Z88.0 Allergy status to penicillin; Z90.49 Acquired absence of other specified parts of digestive tract; Z98.890 Other specified postprocedural states
CPT/HCPCS: 43264; 43275; 74328; J0330; J1100; J2250; J2405; J2704; J3010; J7120; Q9967; U0001

== ENCOUNTER 2020-02-25 21:25 | Emergency (ER) | payer OTHER ==
[~2020-02-25] VITALS: Ht 160 cm; Wt 84.2 kg
[~2020-02-25 21:25] MED LIST changes: -FENTANYL PF 250 MCG/5ML ONE; -MIDAZOLAM 1 MG/ML, 2ML ONE
[2020-02-25] MEDS ORDERED: DIPH,PERTUSS(ACELL),TET VAC/PF 0.5 ML IM-VACC ONE ×2 (22:00→22:46)
[2020-02-25 22:21] LABS: BASOPHILS # (AUTO) 0.03 x10^3/uL (0-0.1); BASOPHILS % (AUTO) 0 % (0-1); EOSINOPHILS # (AUTO) 0.06 x10^3/uL (0-0.4); EOSINOPHILS % (AUTO) 1 % (1-7); LYMPHOCYTES # (AUTO) 1.92 x10^3/uL (1-3.4); LYMPHOCYTES % (AUTO) 26 % (22-44); MD NO; MEAN CORPUSCULAR HEMOGLOBIN 28.7 pg (27.0-34.8); MEAN CORPUSCULAR HGB CONC 32.9 g/dL (32.4-35.8); MEAN CORPUSCULAR VOLUME 87.1 fL (80-100); MEAN PLATELET VOLUME 8.8 fL (7.4-10.4); MONOCYTES # (AUTO) 0.53 x10^3/uL (0.2-0.8); MONOCYTES % (AUTO) 7 % (2-9); NEUTROPHILS # (AUTO) 4.97 x10^3/uL (1.8-6.8); NEUTROPHILS % (AUTO) 66 % (42-75); PLATELET COUNT 208 x10^3/uL (130-400); RED BLOOD COUNT 4.43 x10^6/uL (3.82-5.3); RED CELL DISTRIBUTION WIDTH 16.4 % (9.6-15.2)
[2020-02-25 22:30] LABS: ALBUMIN 3.7 g/dL (3.4-5.0); ANION GAP 6 mmol/L (5-15); CALCIUM 9.3 mg/dL (8.5-10.1); CHLORIDE 111 mmol/L (98-107)
--- NOTE | 2020-02-25 23:10 | NUR ---
IV STARTED IN LAC. PT TOLERATED WELL, DENIES ANY NEEDS OR CONCERNS. TO CT AT THIS TIME.
[2020-02-25] MEDS ORDERED: OMNIPAQUE 350 MG/ML, 75ML BOTTLE ONE (23:31)
--- NOTE | 2020-02-26 00:19 | NUR ---
PT GIVEN INCENTIVE SPIROMETER AND INSTRUCTIONS ON ITS USE. PT ALREADY FAMILIAR, STATES THAT SHE HAS ONE AT HOME. PT REACHED 1750. ERP NOTIFIED. PT DENIES ANY FURTHER NEEDS OR CONCERNS AT THIS TIME. CALL LIGHT IN REACH.
--- NOTE | 2020-02-26 00:47 | NUR ---
TP RN: DR. VILLARREAL REQUESTING TRANSFER TO [facility]; CALLED AND SPOKE WITH GILDA AT [facility] TRANSFER [facility]. DR. CROWDER ACCEPTING. ER TO ER TRANSFER. SETTING UP TRANSPORT AT THIS TIME.
[2020-02-26 01:02] VITALS: BP 141/72
== END 2020-02-26 01:17 | disposition short-term general hospital (02) ==
LOC: ED 02-26 00:40
DX: S22.20XA Unspecified fracture of sternum, initial encounter for closed fracture (principal); S09.90XA Unspecified injury of head, initial encounter; M25.471 Effusion, right ankle; E87.1 Hypo-osmolality and hyponatremia; V49.9XXA Car occupant (driver) (passenger) injured in unspecified traffic accident, initial encounter; W22.10XA Striking against or struck by unspecified automobile airbag, initial encounter; Y93.89 Activity, other specified; Y92.488 Other paved roadways as the place of occurrence of the external cause; Y99.8 Other external cause status
CPT/HCPCS: 36415; 70450; 70498; 71260; 72125; 73610; 80048; 82040; 85025; 90471; 90715; 99285; Q9967